=== PATIENT | female | born 1970 | race Caucasian/White ===

== ENCOUNTER 2021-08-08 05:22 | Inpatient (IN) | payer OTHER, SELFPAY ==
[2021-08-08] VITALS (12 sets, daily range): BP systolic 126–169; BP diastolic 53–95; PULSE 94–128; RESP 15–22; TEMP 36.4–37; O2SAT 90–100; BMI 50.8
--- NOTE | ~2021-08-08 | US_ITS ---
EXAMINATION: US paracentesis abd w/image DATE: 08/10/2021 13:34 INDICATION: Ascites. TECHNIQUE: The procedure and its risks and benefits were discussed with the patient. Potential risks discussed included bleeding and infection. The skin was prepped and draped in sterile fashion. 1% lid ocaine was used for local anesthesia. Under ultrasound guidance, a 5 Fr catheter with trochar was adv anced to the periphery of a very small amount of perihepatic ascites in the right upper quadrant. Wit h attempted advancement of the needle and catheter there is tenting of the peritoneum resulting local ized collapse of the fluid pocket at the site of the needle and catheter. Further advancement of the needle would have resulted in penetration of the liver that was therefore elected to terminate the pr ocedure. No other drainable ascites was identified in the left or right upper lower quadrants. The ca theter was removed, and a dressing was applied. There were no immediate complications. FINDINGS: Ultrasound images demonstrate a minimal amount of perihepatic ascites with the needle advanced throug h the fluid near the level of the liver capsule but without penetrating the peritoneum. Incidentally noted are bilateral pleural effusions. IMPRESSION: 1. Unsuccessful attempt at ultrasound-guided paracentesis targeting a very small amount of perihepati c ascites. There was insufficient fluid to allow for catheter placement within the fluid without risk ing advancement into the underlying liver and therefore the planned drainage was deferred. Reviewed, dictated and finalized at location A. IMPRESSION: 1. Unsuccessful attempt at ultrasound-guided paracentesis targeting a very smal l amount of perihepatic ascites. There was insufficient fluid to allow for cath eter placement within the fluid without risking advancement into the underlying liver and therefore the planned drainage was deferred.
--- NOTE | ~2021-08-08 | CT_ITS ---
EXAMINATION: CT abdomen pelvis w con INDICATION: Generalized abdominal pain TECHNIQUE: Computed tomographic images of the abdomen and pelvis were obtained after the administrati on of 100 cc of Omnipaque 350 intravenous contrast. The dose-length product (DLP) was 1608.53 mGy-cm. Automated exposure control and iterative reconstruction technique were employed. COMPARISON: None available FINDINGS: There are moderate size right and small left pleural effusions. The heart size is normal. T here is passive atelectasis in the lower lobes. The gallbladder is surgically absent. The liver surfa ce is nodular. There are multiple upper abdominal collateral vessels. Large periesophageal varices ar e noted. The spleen and adrenal glands are normal. There is a moderate volume of abdominal and pelvic ascites. There appears to be fat stranding surrounding the pancreas. There are multiple small areas of low attenuation within the pancreas. The kidneys are unremarkable. No pathologically enlarged abdo najma or pelvic lymph nodes are identified. There is no free intraperitoneal gas or evidence of bowel obstruction. There is moderate lumbar spondylosis. IMPRESSION: 1. Cirrhosis with portal hypertension and multiple large upper abdominal periesophageal varices. 2. Possible inflammation surrounding the pancreas and multiple small areas of low attenuation in the pancreas, likely related to pancreatitis, acute versus chronic. 3. Moderate volume of ascites. 4. Moderate size right and small left pleural effusions with associated atelectasis. Reviewed, dictated and finalized at location A. IMPRESSION: 1. Cirrhosis with portal hypertension and multiple large upper abdominal peries ophageal varices. 2. Possible inflammation surrounding the pancreas and multiple small areas of l ow attenuation in the pancreas, likely related to pancreatitis, acute versus ch ronic. 3. Moderate volume of ascites. 4. Moderate size right and small left pleural effusions with associated atelect asis.
--- NOTE | 2021-08-08 05:46 | ECG_ITS ---
Measurements Intervals [place] Rate: 100 P: 8 AR: 108 QRS: 10 QRSD: 81 T: 5 QT: 344 QTc: 445 Interpretive Statements SINUS TACHYCARDIA WITH SHORT AR INTERVAL BASELINE ARTIFACT- I, III, AVR, AVL BORDERLINE ECG Electronically Signed On 08-08-2021 8:57:16 CDT by Gary Lima D.O.
[2021-08-08] MEDS: ONDANSETRON INJ 4 MG/2 ML VIAL IV PUSH ×4 (05:51→22:03)
[2021-08-08] MEDS: SODIUM CHLORIDE 0.9% IV 1,000 ML 999 ML IV CONT (05:51)
[2021-08-08] MEDS: PANTOPRAZOLE SODIUM IV 40 MG VIAL 80 MG IV PUSH (05:51)
--- NOTE | 2021-08-08 05:57 | ED.GENADULT ---
HPI - General Adult General Chief complaint: Abdominal Pain <Liborio Fox MD - Last Filed: 08/08/21 06:00> Stated complaint: vomiting blood <Liborio Fox MD - Last Filed: 08/08/21 06:00> Time Seen by Provider: 08/08/21 05:44 <Liborio Fox MD - Last Filed: 08/08/21 06:00> History of Present Illness HPI narrative: Patient is a 51-year-old female who presents to the emergency department with chief complaint of vomiting blood. Patient reports that she has history of liver disease and is noticed that her abdomen is becoming more swollen she is scheduled for a ultrasound and paracentesis later this week. Patient states that about 2 weeks ago she was diagnosed with COVID-19 and has had shortness of breath since then. The patient also reports she has a history of low platelets and this evening started having nausea and vomiting. Patient states that the emesis contained a large amount of blood and this led to her decided to come to the emergency department. The patient denies blood in her stool reports that she is currently not on any blood thinners. The patient reports that she has had an EGD that did not show any evidence of varices in the past. Patient reports this was about a year ago. <Liborio Fox MD - Last Filed: 08/08/21 06:00> Related Data Allergies/adverse reactions: Allergies Allergy/AdvReac Type Severity Reaction Status Date / Time codeine Allergy Mild Nausea and Verified 08/08/21 05:34 Vomiting <Liborio Fox MD - Last Filed: 08/08/21 06:00> Review of Systems Review of Systems: A 10 system review of systems was completed on the patient and is negative except for what is stated in the HPI. Nursing and ancillary documentation was reviewed. <Liborio Fox MD - Last Filed: 08/08/21 06:00> PMFSH Comments History of nonalcoholic cirrhosis COVID-19 <Liborio Fox MD - Last Filed: 08/08/21 06:00> Exam Narrative: GENERAL: Well-appearing, well-nourished, and in no acute distress. HEAD: Normocephalic, atraumatic. EYES: PERRLA and EOMI. ENT: Nares clear, no rhinorrhea or epistaxis. Mucous membranes moist. NECK: Supple. CHEST: Clear to auscultation. No respiratory distress. HEART: Regular rate and rhythm. No murmur heard. Normal peripheral pulses. ABDOMEN: Soft, nontender, nondistended, normal active bowel sounds. EXTREMITIES: Normal range of motion. No edema. SKIN: Warm, dry, no rash. NEURO: No focal deficits. Alert and oriented x3. PSYCH: Normal mood and affect. <Liborio Fox MD - Last Filed: 08/08/21 06:00> Course Course Emergency Course: GI consulted. Recommend octreotide in addition to Protonix. Admit to hospitalist service. Will place in the IMU. Patient did have a bloody bowel movement while in the ER that had formed black stool with red dissipating into the water in the toilet. <Maynor Villavicencio MD - Last Filed: 08/08/21 09:36> Vital Signs Vital signs: Vital Signs Temperature 98.5 F 08/08/21 05:29 Pulse Rate 101 H 08/08/21 05:29 Respiratory Rate 22 H 08/08/21 05:29 Blood Pressure 126/72 08/08/21 05:29 Pulse Oximetry 93 08/08/21 05:29 Temperature 98.5 F 08/08/21 05:29 Pulse Rate 94 08/08/21 07:19 Respiratory Rate 18 08/08/21 07:19 Blood Pressure 159/85 H 08/08/21 07:19 Pulse Oximetry 95 08/08/21 07:19 <Liborio Fox MD - Last Filed: 08/08/21 06:00> Vital Signs Temperature 98.5 F 08/08/21 05:29 Pulse Rate 101 H 08/08/21 05:29 Respiratory Rate 22 H 08/08/21 05:29 Blood Pressure 126/72 08/08/21 05:29 Pulse Oximetry 93 08/08/21 05:29 Temperature 98.5 F 08/08/21 05:29 Pulse Rate 94 08/08/21 07:19 Respiratory Rate 18 08/08/21 07:19 Blood Pressure 159/85 H 08/08/21 07:19 Pulse Oximetry 95 08/08/21 07:19 <Maynor Villavicencio MD - Last Filed: 08/08/21 09:36> Anju Kingsley
[2021-08-08 06:02] LABS: Basophils Absolute Auto 0.1 K/mm3 (0.0-0.1); Basophils Percent Auto 0.5 % (0.2-1.2); Eosinophils Absolute Auto 0.8 K/mm3 (0-0.3); Eosinophils Percent Auto 4.5 % (0-4.4); Hematocrit 35.8 % (37.0-47.0); Hemoglobin 11.6 g/dL (12.0-15.0); Immature Granulocyte Absolute 0.42 K/mm3 (0.00-0.031); Immature Granulocyte Percent A 2.3 % (0-0.5); Lymphocytes Absolute Auto 3.85 K/mm3 (0.9-3.2); Lymphocytes Percent Auto 21.2 % (18.3-44.2); Mean Corpuscular HGB Conc 32.4 g/dl (32-36); Mean Corpuscular Hemoglobin 35.2 pg (26-34); Mean Corpuscular Volume 108.5 fl (80-100); Mean Platelet Volume 9.4 fl (7.4-10.4); Monocytes Absolute Auto 2.2 K/mm3 (0.1-0.6); Monocytes Percent Auto 11.9 % (2.6-8.5); Neutrophils Absolute Auto 10.8 K/mm3 (1.3-6.7); Neutrophils Percent Auto 59.6 % (45.5-73.1); Nucleated Red Blood Cells Absolute Auto 0.1 K/mm3 (0.0-0.012); Nucleated Red Blood Cells Perc 0.3 % (0.0-0.2); Platelet Count Result 206 k/mm3 (150-375); Red Cell Distribution Width 15.2 % (11.5-14.5); White Blood Count 18.2 K/mm3 (4.5-10.0)
[2021-08-08 06:12] LABS: Lipase 1241 U/L (23-300); Magnesium 2.1 mg/dL (1.6-2.3)
[2021-08-08 06:16] LABS: Alanine Aminotransferase 30 U/L (4-35); Albumin Level 2.5 g/dL (3.5-5.1); Alkaline Phosphatase 107 U/L (38-126); Anion Gap 4 mmol/L (8-16); Aspartate Amino Transferase 49 U/L (14-36); Bilirubin,Total 3.5 mg/dL (0.2-1.3); Blood Urea Nitrogen 42 mg/dL (7-17); Calcium 8.2 mg/dL (8.4-10.2); Carbon Dioxide 28 mmol/L (22-30); Chloride 106 mmol/L (98-107); Estimated CRCL calculation 91 ml/min; Estimated Glomerular Filt Rate > 60; Glucose 152 mg/dL (65-110); Potassium 4.9 mmol/L (3.4-5.0); Sodium 138 mmol/L (137-145)
[2021-08-08 06:18] LABS: INR 1.7; Partial Thromboplastin Time 30.1 SECONDS (22.3-36.8)
--- NOTE | 2021-08-08 06:27 | PC.NURSE ---
Addendum entered by Kimberly Chapin RN 08/08/21 06:29: ERP made aware. VORB to discontinue NG. Original Note: RN attempted x3 for NG using two different size tubes w/ no success. pt. reports to RN after procedure hx. of deviated symptoms.
--- NOTE | 2021-08-08 06:43 | PC.NURSE ---
Patient in CT at this time.
[2021-08-08 07:33] LABS: Ammonia < 9 umol/L (9-30)
[2021-08-08] MEDS: OCTREOTIDE ACETATE 50 MCG/ML VIAL IV PUSH (09:14)
--- NOTE | 2021-08-08 10:48 | PC.NURSE ---
Report received by SHAUN Treviño at 1039. All questions answered and plan of care reviewed. patient to go to IMU room 209.
--- NOTE | 2021-08-08 10:59 | ADMGEN ---
This patient, Lilia Francisco, was admitted to IMU Room 209-01 at 1053. Patient/family oriented to hospital policies and general routines including ID bracelet, bed and alarms, visiting hours, pain management, procedures, bathroom and other care routines, personal items, smoking policy, room service/diet, and visiting hours. Information on how to activate the Rapid Response Team has been discussed. Patient/Family are encouraged to report perceived risks to care and to ask questions if they do not understand what they are told or what they should do.
[2021-08-08] MEDS: SODIUM CHLORIDE 0.9% IV 1,000 ML 125 ML IV CONT (11:22)
--- NOTE | 2021-08-08 12:21 | WPDGICN ---
Assessment and Plan Additional Plan GI Consultation Dr. Luna August 08, 2021 This is a 51 year old female patient with a history of cirrhosis with ascites and TCP due to alpha one antitrypsin deficiency, obesity and CCx who now presents for evaluation of hematemesis. Patient is seen at the request of the Hospitalist service to evaluate for same. The patient?s primary care provider is Dr. Madeleine Beltran. She is followed by [facility]. Emil MARCH, present for entire visit at patient request. Patient states she got Covid-19 a couple weeks ago with SOB and body aches. She has been taking ibuprofen 800 mg po q 8 hours for this and just finished Prednisone taper yesterday. She has had some increasing abdominal distention she attributed to ascites and had a U/S with possible tap scheduled for 08/12/2021. This am she had nausea with some dry heaves then had large hematemesis with BRB. She came to the ER for evaluation. In the ER patient had additional hematemesis and melena. Patient has cold intolerance but in general denies previous abdominal pain, nausea or vomiting, trouble swallowing, bloating, loss of appetite or weight, early satiety, heartburn, diarrhea or constipation, rectal bleeding or melena. Patient denies fever, jaundice, scleral icterus, dark urine, light stool, itching, heat intolerance, chest pain, shortness of breath at rest, hematuria, dysuria, new cough or visual changes, easy bruising, tingling of the skin, bone pain or tremors. No history of endocarditis, rheumatic fever, dental prophylaxis, heart valve surgery, bleeding disorder or joint replacement. Allergies: codeine. Medications: propranolol. Lasix, Aldactone, Symbicort (for Covid), Motrin and Prednisone as above. No aspirin or anticoagulants. Social history: nonsmoker, nondrinker. Family history: negative for GI malignancy. 05/29/2020 (Dr. Powell) EGD grade 1 varices, colonoscopy normal. Physical exam: No lower extremity edema, jaundice, spider angioma, palmar erythema. Skull is normocephalic atraumatic. Sclera are non-icteric. Oropharynx is clear. Neck is supple without thyromegaly. Lungs are clear. Heart is rate and rhythm regular. S1 and S2 normal. Normal active bowel sounds. Non-tender, non-rigid, non-distended without hepatosplenomegaly or masses. No guarding. Rectal is deferred. Neuro is conscious and alert ?3. Labs: Hgb 12, Hct 36, PTL 206, WBC 18, MCV 109. INR 1.7, PTT 30, Cr 0.8, NH3< 9. Lipase 1241. TBili 3.5, A/P 107, AST 49, ALT 30. Imaging: CT A/P with IV cirrhosis, portal HTN, periesophageal varices and questionable changes of pancreatitis. Assessment and plan: A. Abnormal LFT's, abnormal imaging-liver secondary to cirrhosis with ascites and TCP, coagulopathy due to alpha one antitrypsin deficiency: - Followed by [facility]; work-up has been done - Has ascites * care with diuretics and beta blockers at this time with bleeding * use 1/4 normal saline for hydration * 2 gr sodium restriction * U/S guided tap prn - Coagulopathy * Typically has low platelets, follow * Has increased INR; would give vit K and maybe FFP * would like INR < 1.6 for EGD B. Acute blood loss anemia with hematemesis and melena on Motrin and Prednisone: - DDx includes varices, ulcer and M-W tear - Follow H+H; transfuse prn - Does not appear to have active bleed at this time - No aspirin, NSAIDS or anticoagulants - EGD in am if possible - Reglan for N/V and to help clear stomach - IV PPI - Octreotide drip C. Macrocytosis: - Denies alcohol - Check B12/folate D. N/V/Hematemesis/abnormal imaging-pancreas/elevated lipase: - It is not clear to me that patient has pancreatitis tho she certainly could - Patient has had CCx - It is possible that CT changes could be from duodenal ulcers and increased Lipase could be from emesis - Would check fasting triglyceride - Follow lipase The procedure of upper endoscopy, its indications, alternatives of barium studies and risks includ
--- NOTE | 2021-08-08 13:10 | PM.IMHP ---
H&P: HPI History of Present Illness Date/Time: 08/08/21 13:10 Patient is a 51-year-old female with past medical history of alpha 1 antitrypsin deficiency cirrhosis with ascites presents to the ED with complaint of hematemesis. Of note patient was diagnosed with COVID-19 2 weeks ago managed outpatient with steroid taper and p.r.n. breathing treatments. She was alternating Tylenol and ibuprofen 800 mg t.i.d. for fever control. She was to complete steroids today. For her cirrhosis she follows Catrachita Magana [employer] [facility] hepatology. She is not quite at transplant. She was planned to have paracentesis 08/12/2021. Of note patient had EGD last year which showed some varices that were not significant enough for intervention. She endorses nausea, melena, hematemesis. She still feels little shortness of breath after COVID 19. She denies fever, chills, chest pain. In the ED: Vitals stable, hemoglobin 11.6, leukocytosis WBC 18.2, INR 1.7, lipase 1241, CT abdomen pelvis shows signs of cirrhosis, varices, pancreatitis. Dr. Luna GI was consulted who will see patient for EGD. Patient admitted to IMU for further management Chief Complaint: Hematemesis, melena Review of Systems Review of Systems: Constitutional: No Fever, No Chills, No Night Sweats, No Fatigue, No Malaise ENT/Mouth: No Hearing Changes, No Ear Pain, No Nasal Congestion, No Sinus Pain, No Hoarseness, No sore throat, No Rhinorrhea, No Swallowing Difficulty Eyes: No Eye Pain, No Redness, No Vision Changes Cardiovascular: No Chest Pain, No Palpitations, No Dyspnea on Exertion, No Orthopnea, No Claudication, No Edema Respiratory: Endorses shortness of breath, no cough, no sputum Gastrointestinal: No Diarrhea, No Constipation. Endorses melena, hematochezia, hematemesis, nausea, vomiting, abdominal Genitourinary: No Dysuria, No Urinary Frequency, No Hematuria, No Urinary Incontinence, No Urgency Musculoskeletal: No Arthralgias, No Myalgias, No Joint Swelling, No Joint Stiffness, No Back Pain Skin: No Skin Lesions, No Pruritis, No Hair Changes Neuro: No Weakness, No Numbness, No Paresthesias, No Loss of Consciousness, No Syncope, No Dizziness, No Headache Psych: No Anxiety/Panic, No Depression, No Insomnia Heme: No Bruising, No Bleeding Lymph: No Adenopathy Endocrine: No Polyuria, No Polydipsia, No Temperature Intolerance [facility], [facility] Past Medical History Medical History (Updated 08/08/21 @ 13:22 by Corbin Lopez DO) [id number] deficiency Cirrhosis of liver COVID-19 07/2021 Surgical History Surgical History (Updated 08/08/21 @ 13:19 by Corbin Lopez DO) History of esophagogastroduodenoscopy (EGD) Family History Family History (Updated 08/08/21 @ 13:19 by Corbin Lopez DO) Father Heart disease Social History Social History Smoking packs per day: 0.5 Smoking cigarettes per day: 10.0 Years smoked: 15 Smoking pack-years: 7.50 Smoking status: Former smoker Tobacco type: cigarettes and e-cigarettes/vaping Second hand tobacco smoke exposure: Yes Alcohol intake: current Substance use: never Substance use type: does not use Other substance usage details: Patient drinks alcohol once to twice a month. Spiritual care concerns: No Comments Drinks socially once a month, quit smoking 6 years ago was half a pack-a-day smoker for 15 years. Occupation works at [employer] Very active lives with and 15-year-old son Meds Home Medications and Allergies Home Medications Medication Instructions Recorded Confirmed Type albuterol sulfate 2 puff INHALATION Q4H 08/08/21 08/08/21 History budesonide-formoterol 2 puff INHALATION BID 08/08/21 08/08/21 History diclofenac sodium 75 mg PO BID PRN 08/08/21 08/08/21 History furosemide 40 mg PO DAILY 08/08/21 08/08/21 History prednisone 20 mg PO USEASDIRECTD 08/08/21 08/08/21 History propranolol 40 mg PO DAILY
[2021-08-08 14:39] LABS: Hematocrit 31.4 % (37.0-47.0); Hemoglobin 10.3 g/dL (12.0-15.0)
[2021-08-08] MEDS: DEXTROSE 5%/0.225% SOD CHL 1,000 ML 100 ML IV CONT (16:06)
[2021-08-08] MEDS: METOCLOPRAMIDE HCL INJ 10 MG/2 ML VIAL IV PUSH (17:41)
[2021-08-08] MEDS: FLUTICASONE/SALMETEROL 115-21 MCG INHALER 1 PUFF 2 PUFF INHALATION (20:02)
[2021-08-08 22:23] LABS: Hematocrit 29.7 % (37.0-47.0); Hemoglobin 9.7 g/dL (12.0-15.0)
[2021-08-08] MEDS: PANTOPRAZOLE SODIUM IV 40 MG VIAL IV PUSH (22:40)
[2021-08-09] VITALS (17 sets, daily range): BP systolic 130–154; BP diastolic 45–70; PULSE 70–108; RESP 14–23; TEMP 36.4–37.1; O2SAT 94–98
[2021-08-09] MEDS: METOCLOPRAMIDE HCL INJ 10 MG/2 ML VIAL IV PUSH ×5 (00:22→23:38)
[2021-08-09] MEDS: DEXTROSE 5%/0.225% SOD CHL 1,000 ML 100 ML IV CONT ×3 (01:23→23:41)
[2021-08-09 05:40] LABS: Basophils Absolute Auto 0.1 K/mm3 (0.0-0.1); Basophils Percent Auto 0.4 % (0.2-1.2); Eosinophils Absolute Auto 0.8 K/mm3 (0-0.3); Eosinophils Percent Auto 4.7 % (0-4.4); Hemoglobin 9.1 g/dL (12.0-15.0); Immature Granulocyte Absolute 0.45 K/mm3 (0.00-0.031); Immature Granulocyte Percent A 2.8 % (0-0.5); Lymphocytes Absolute Auto 2.81 K/mm3 (0.9-3.2); Lymphocytes Percent Auto 17.3 % (18.3-44.2); Mean Corpuscular HGB Conc 32.5 g/dl (32-36); Mean Corpuscular Hemoglobin 35.3 pg (26-34); Mean Corpuscular Volume 108.5 fl (80-100); Mean Platelet Volume 9.2 fl (7.4-10.4); Monocytes Absolute Auto 1.8 K/mm3 (0.1-0.6); Neutrophils Absolute Auto 10.4 K/mm3 (1.3-6.7); Neutrophils Percent Auto 63.8 % (45.5-73.1); Nucleated Red Blood Cells Perc 0.2 % (0.0-0.2); Platelet Count Result 166 k/mm3 (150-375); Red Blood Count 2.58 M/mm3 (4.2-5.4); Red Cell Distribution Width 15.3 % (11.5-14.5); White Blood Count 16.3 K/mm3 (4.5-10.0)
[2021-08-09 05:50] LABS: INR 1.7; Partial Thromboplastin Time 34.6 SECONDS (22.3-36.8); Prothrombin Time 19.1 Seconds (11.1-14.7)
[2021-08-09 05:56] LABS: Anion Gap 0 mmol/L (8-16); Blood Urea Nitrogen 39 mg/dL (7-17); Calcium 7.7 mg/dL (8.4-10.2); Carbon Dioxide 27 mmol/L (22-30); Chloride 107 mmol/L (98-107); Estimated CRCL calculation 92 ml/min; Estimated Glomerular Filt Rate > 60; Glucose 171 mg/dL (65-110); Potassium 4.9 mmol/L (3.4-5.0); Sodium 134 mmol/L (137-145); Triglycerides 67 mg/dL (<150)
[2021-08-09 06:03] LABS: Lipase 2027 U/L (23-300)
[2021-08-09] MEDS: ONDANSETRON INJ 4 MG/2 ML VIAL IV PUSH (06:05)
[2021-08-09 07:02] LABS: Folic Acid 7.3 ng/mL (2.76->20); Vitamin B12 > 1000.0 pg/mL (239-931)
[2021-08-09] MEDS: PANTOPRAZOLE SODIUM IV 40 MG VIAL IV PUSH ×2 (08:00→20:49)
[2021-08-09] MEDS: FLUTICASONE/SALMETEROL 115-21 MCG INHALER 1 PUFF 2 PUFF INHALATION ×2 (08:54→20:30)
[2021-08-09] MEDS: LACTATED RINGERS 1,000 ML 150 ML IV CONT (10:54)
--- NOTE | 2021-08-09 10:56 | WPDANESEPPF ---
Anes - Initial Pre Proc Eval Procedure: Operation Date: 08/09/21 14:15 Proposed Procedures p Esophagogastroduodenoscopy - Rbuen Ward MD Date/Time: 08/09/21 10:56 Surgeon: Jerry Lopez DO Pre Op Diagnosis: Upper GI Bleeding, Pancreatitis Patient Data Age: 51 Gender: F Height: 1.65 m Weight: 138.4 kg Last Vital Signs Temp 97.7 F 08/09/21 10:51 Pulse 102 H 08/09/21 10:51 Resp 20 08/09/21 10:51 BP 144/45 H 08/09/21 10:51 Pulse Ox 97 08/09/21 10:51 Allergies Allergy/AdvReac Type Severity Reaction Status Date / Time codeine Allergy Mild Nausea and Verified 08/09/21 10:44 Vomiting amoxicillin AdvReac Nausea and Verified 08/09/21 10:44 Vomiting Home Medications Medication Instructions Recorded Confirmed Type albuterol sulfate 2 puff INHALATION Q4H PRN 08/08/21 08/08/21 History budesonide-formoterol 2 puff INHALATION BID 08/08/21 08/08/21 History diclofenac sodium 75 mg PO BID PRN 08/08/21 08/08/21 History furosemide 40 mg PO DAILY 08/08/21 08/08/21 History prednisone 20 mg PO USEASDIRECTD 08/08/21 08/08/21 History propranolol 40 mg PO DAILY 08/08/21 08/08/21 History spironolactone 100 mg PO DAILY 08/08/21 08/08/21 History Laboratory Tests 08/08/21 08/08/21 08/09/21 14:21 22:13 05:23 WBC 16.3 K/mm3 H K/mm3 (4.5-10.0) RBC 2.58 M/mm3 L M/mm3 (4.2-5.4) Hgb 10.3 g/dL L g/dL 9.7 g/dL L g/dL 9.1 g/dL L g/dL (12.0-15.0) (12.0-15.0) (12.0-15.0) Hct 31.4 % L % 29.7 % L % 28.0 % L % (37.0-47.0) (37.0-47.0) (37.0-47.0) MCV 108.5 fl H fl (80-100) MCH 35.3 pg H pg (26-34) MCHC 32.5 g/dl g/dl (32-36) RDW 15.3 % H % (11.5-14.5) Plt Count 166 k/mm3 k/mm3 (150-375) MPV 9.2 fl fl (7.4-10.4) Immature Gran % (Auto) 2.8 % H % (0-0.5) Neut % (Auto) 63.8 % % (45.5-73.1) Lymph % (Auto) 17.3 % L % (18.3-44.2) [place] % (Auto) 11.0 % H % (2.6-8.5) Eos % (Auto) 4.7 % H % (0-4.4) Baso % (Auto) 0.4 % % (0.2-1.2) Lymph # (Auto) 2.81 K/mm3 K/mm3 (0.9-3.2) [place] # (Auto) 1.8 K/mm3 H K/mm3 (0.1-0.6) Eos # (Auto) 0.8 K/mm3 H K/mm3 (0-0.3) Baso # (Auto) 0.1 K/mm3 K/mm3 (0.0-0.1) Abs Immat Gran (auto) 0.45 K/mm3 H K/mm3 (0.00-0.031) Absolute Neuts (auto) 10.4 K/mm3 H K/mm3 (1.3-6.7) Absolute Nucleated RBC 0.0 K/mm3 K/mm3 (0.0-0.012) Nucleated RBC % 0.2 % % (0.0-0.2) PT INR APTT Sodium Potassium Chloride Carbon Dioxide Anion Gap BUN Creatinine Estim Creat Clear Calc Estimated GFR Glucose Calcium Triglycerides Lipase Vitamin B12 Folate 08/09/21 08/09/21 05:23 05:23 WBC RBC Hgb Hct MCV MCH MCHC RDW Plt Count MPV Immature Gran % (Auto) Neut % (Auto) Lymph % (Auto) [place] % (Auto) Eos % (Auto) Baso % (Auto) Lymph # (Auto) [place] # (Auto) Eos # (Auto) Baso # (Auto) Abs Immat Gran (auto) Absolute Neuts (auto) Absolute Nucleated RBC Nucleated RBC % PT 19.1 Seconds H Seconds (11.1-14.7) INR 1.7 APTT 34.6 SECONDS SECONDS (22.3-36.8) Sodium 134 mmol/L L mmol/L (137-145) Potassium 4.9 mmol/L mmol/L (3.4-5.0) Chloride 107 mmol/L mmol/L (98-107) Carbon Dioxide 27 mmol/L mmol/L (22-30) Anion Gap 0 mmol/L L mmol/L (8-16) BUN 39 mg/dL H mg/dL (7-17) Creatinine 0.90 mg/dL mg/dL (0.7-1.0) E
--- NOTE | 2021-08-09 11:11 | PM.IMPN ---
Progress Note: A&P Assessment and Plan (1) Acute upper GI bleed: Code(s): K92.2 - Gastrointestinal hemorrhage, unspecified Status: Acute Assessment and Plan: Associated with acute blood loss anemia Most likely related to steroid and NSAID complicated by esophageal varices secondary to liver cirrhosis Patient has history of liver cirrhosis and esophageal varices GI consult EGD 08/09/2021 IV Protonix IV octreotide drip Pain control Zofran IV Rocephin started as patient has ascites and GI bleed Monitor H&H transfuse if hemoglobin below 7 (2) Acute pancreatitis: Code(s): K85.90 - Acute pancreatitis without necrosis or infection, unspecified Status: Acute Assessment and Plan: Reviewed CT scan shows acute pancreatitis patient has elevated lipase Continue IV hydration Diet managed by GI IV and oral pain control Zofran for nausea (3) [id number] deficiency: Code(s): E88.01 - Wewfh-[id number] deficiency Status: Inactive Assessment and Plan: Associated with liver cirrhosis GI follow-up (4) COVID-19: Code(s): U07.1 - COVID-19 Status: Acute Assessment and Plan: -leukocytosis likely from steroid taper, COVID-19 appears to be resolved, she completed steroid taper. She was diagnosed with COVID-19 2 weeks prior to admission -will continue p.r.n. breathing treatments Symbicort and albuterol Additional Plan Diet: NPO except ice chips DVT prophylaxis: SCDs, with GI bleed no chemoprophylaxis Code status: Full code Disposition: EGD today, continue monitoring in IMU Subjective Date/time seen: 08/09/21 11:11 Interval history: 51-year-old female with past medical history of alpha 1 antitrypsin deficiency cirrhosis with ascites presents to the ED with complaint of hematemesis. Of note patient was diagnosed with COVID-19 2 weeks ago managed outpatient with steroid taper and p.r.n. breathing treatments. She was alternating Tylenol and ibuprofen 800 mg t.i.d. for fever control. She was to complete steroids today. For her cirrhosis she follows Catrachita Magana [employer] at [facility] hepatology. She is not quite at transplant. She was planned to have paracentesis 08/12/2021. Of note patient had EGD last year which showed some varices that were not significant enough for intervention. She endorses nausea, melena, hematemesis. She still feels little shortness of breath after COVID 19. CT scan shows liver cirrhosis esophageal viruses and acute pancreatitis GI was consulted EGD on 08/09/2021 patient was started on Protonix drip and octreotide drip pending final results of EGD Patient still feel weak short of breath Patient denies fever headache chest pain fever I am seeing the patient for GI bleed Objective Data Vital Signs Vital Signs: Vital Signs - 24 hr 08/08/21 12:00 08/08/21 14:00 08/08/21 16:00 Temperature 98.6 F Pulse Rate 106 H 121 H 127 H Respiratory Rate 16 Blood Pressure 132/53 L Pulse Oximetry 97 08/08/21 18:00 08/08/21 20:00 08/08/21 22:00 Temperature 98.5 F Pulse Rate 128 H 103 H 105 H Respiratory Rate 18 Blood Pressure 169/65 H Pulse Oximetry 95 08/08/21 23:34 08/09/21 00:00 08/09/21 02:00 Temperature 98.0 F Pulse Rate 103 H 98 94 Respiratory Rate 18 Blood Pressure 160/70 H Pulse Oximetry 94 94 08/09/21 04:00 08/09/21 06:00 08/09/21 08:00 Temperature 97.6 F 98.3 F Pulse Rate 102 H 99 98 Respiratory Rate 20 17 Blood Pressure 154/66 H 138/58 L Pulse Oximetry 98 95 08/09/21 08:56 08/09/21 10:51 Temperature 97.7 F Pulse Rate 102 H Respiratory Rate 20 Blood Pressure 144/45 H Pulse Oximetry 95 97 Intake/Output Intake/Output: Intake & Output 08/06/21 08/07/21 08/08/21 08/09/21 23:59 23:59 23:59 23:59 Intake Total 2276 1200 Output Total 450 Balance 2276 750 Meds/Results Medications: Active Medications Generic Name Dose Route Start Last Admin Trade
[2021-08-09 12:25] LABS: Glucose Point of Care 145 mg/dl (65-105)
[2021-08-09 12:37] LABS: Hemoglobin A1C 5.3 % (<5.7)
[2021-08-09] MEDS: PHYTONADIONE 5 MG TABLET PO (12:39)
[2021-08-09 14:46] LABS: Hematocrit 27.1 % (37.0-47.0)
[2021-08-09 16:41] LABS: Glucose Point of Care 149 mg/dl (65-105)
[2021-08-09 20:30] LABS: Glucose Point of Care 148 mg/dl (65-105)
[2021-08-10] VITALS (13 sets, daily range): BP systolic 138–160; BP diastolic 46–63; PULSE 80–114; RESP 16–22; TEMP 36.5–37.1; O2SAT 93–95
[2021-08-10] MEDS: METOCLOPRAMIDE HCL INJ 10 MG/2 ML VIAL IV PUSH ×4 (05:29→23:19)
[2021-08-10 06:23] LABS: Basophils Absolute Auto 0.1 K/mm3 (0.0-0.1); Basophils Percent Auto 0.7 % (0.2-1.2); Eosinophils Absolute Auto 0.6 K/mm3 (0-0.3); Eosinophils Percent Auto 5.3 % (0-4.4); Hematocrit 25.1 % (37.0-47.0); Hemoglobin 8.2 g/dL (12.0-15.0); Immature Granulocyte Absolute 0.63 K/mm3 (0.00-0.031); Immature Granulocyte Percent A 5.4 % (0-0.5); Lymphocytes Percent Auto 19.8 % (18.3-44.2); Mean Corpuscular HGB Conc 32.7 g/dl (32-36); Mean Corpuscular Hemoglobin 35.5 pg (26-34); Mean Corpuscular Volume 108.7 fl (80-100); Mean Platelet Volume 9.3 fl (7.4-10.4); Monocytes Absolute Auto 1.6 K/mm3 (0.1-0.6); Monocytes Percent Auto 13.9 % (2.6-8.5); Neutrophils Absolute Auto 6.4 K/mm3 (1.3-6.7); Neutrophils Percent Auto 54.9 % (45.5-73.1); Nucleated Red Blood Cells Absolute Auto 0.1 K/mm3 (0.0-0.012); Nucleated Red Blood Cells Perc 0.9 % (0.0-0.2); Platelet Count Result 132 k/mm3 (150-375); Red Blood Count 2.31 M/mm3 (4.2-5.4); Red Cell Distribution Width 15.8 % (11.5-14.5); White Blood Count 11.6 K/mm3 (4.5-10.0)
[2021-08-10 06:37] LABS: Alanine Aminotransferase 31 U/L (6-35); Albumin Level 2.3 g/dL (3.5-5.1); Alkaline Phosphatase 92 U/L (38-126); Anion Gap 1 mmol/L (8-16); Aspartate Amino Transferase 49 U/L (14-36); Bilirubin,Total 2.9 mg/dL (0.2-1.3); Blood Urea Nitrogen 24 mg/dL (7-17); Calcium 7.6 mg/dL (8.4-10.2); Carbon Dioxide 26 mmol/L (22-30); Chloride 105 mmol/L (98-107); Estimated CRCL calculation 92 ml/min; Estimated Glomerular Filt Rate > 60; Glucose 143 mg/dL (65-110); Potassium 4.3 mmol/L (3.4-5.0); Sodium 132 mmol/L (137-145)
--- NOTE | 2021-08-10 07:58 | WPDANESPN ---
Anes - Prog Note Post-Op Date/Time: 08/10/21 07:58 Cardiovascular status: normal Respiratory status: normal Airway patency: baseline Mental status: baseline Post-Op hydration status: normal Vital Signs: Last Vital Signs Temp 36.5 C 08/10/21 03:46 Pulse 80 08/10/21 06:00 Resp 22 H 08/10/21 03:46 BP 160/46 H 08/10/21 03:46 Pulse Ox 95 08/10/21 03:46 Pain Score (VAS): 0 I/O: Intake & Output 08/09/21 08/09/21 08/10/21 15:59 23:59 07:59 Intake Total 1370 1440 250 Balance 1370 1440 250 Laboratory Tests 08/10/21 05:27 08/10/21 05:27 08/08/21 08/09/21 08/09/21 14:21 12:22 14:16 WBC RBC Hgb 9.0 L Hct 27.1 L MCV MCH MCHC RDW Plt Count MPV Immature Gran % (Auto) Neut % (Auto) Lymph % (Auto) [place] % (Auto) Eos % (Auto) Baso % (Auto) Lymph # (Auto) [place] # (Auto) Eos # (Auto) Baso # (Auto) Abs Immat Gran (auto) Absolute Neuts (auto) Absolute Nucleated RBC Nucleated RBC % Sodium Potassium Chloride Carbon Dioxide Anion Gap BUN Creatinine Estim Creat Clear Calc Estimated GFR Glucose POC Capillary Glucose 145 H Hemoglobin A1c 5.3 Calcium Total Bilirubin AST ALT Alkaline Phosphatase Total Protein Albumin 08/09/21 08/09/21 08/10/21 16:31 20:19 05:27 WBC 11.6 H RBC 2.31 L Hgb 8.2 L Hct 25.1 L MCV 108.7 H MCH 35.5 H MCHC 32.7 RDW 15.8 H Plt Count 132 L MPV 9.3 Immature Gran % (Auto) 5.4 H Neut % (Auto) 54.9 Lymph % (Auto) 19.8 [place] % (Auto) 13.9 H Eos % (Auto) 5.3 H Baso % (Auto) 0.7 Lymph # (Auto) 2.30 [place] # (Auto) 1.6 H Eos # (Auto) 0.6 H Baso # (Auto) 0.1 Abs Immat Gran (auto) 0.63 H Absolute Neuts (auto) 6.4 Absolute Nucleated RBC 0.1 H Nucleated RBC % 0.9 H Sodium Potassium Chloride Carbon Dioxide Anion Gap BUN Creatinine Estim Creat Clear Calc Estimated GFR Glucose POC Capillary Glucose 149 H 148 H Hemoglobin A1c Calcium Total Bilirubin AST ALT Alkaline Phosphatase Total Protein Albumin 08/10/21 05:27 WBC RBC Hgb Hct MCV MCH MCHC RDW Plt Count MPV Immature Gran % (Auto) Neut % (Auto) Lymph % (Auto) [place] % (Auto) Eos % (Auto) Baso % (Auto) Lymph # (Auto) [place] # (Auto) Eos # (Auto) Baso # (Auto) Abs Immat Gran (auto) Absolute Neuts (auto) Absolute Nucleated RBC Nucleated RBC % Sodium 132 L Potassium 4.3 Chloride 105 Carbon Dioxide 26 Anion Gap 1 L BUN 24 H D Creatinine 0.90 Estim Creat Clear Calc 92 Estimated GFR > 60 Glucose 143 H POC Capillary Glucose Hemoglobin A1c Calcium 7.6 L Total Bilirubin 2.9 H AST 49 H ALT 31 Alkaline Phosphatase 92 Total Protein 5.0 L Albumin 2.3 L Post-procedural complaints: none Patient Feedback: Patient satisfied with anesthetic care.
[2021-08-10 08:02] LABS: Glucose Point of Care 144 mg/dl (65-105)
[2021-08-10] MEDS: FLUTICASONE/SALMETEROL 115-21 MCG INHALER 1 PUFF 2 PUFF INHALATION ×2 (08:28→20:58)
[2021-08-10] MEDS: PANTOPRAZOLE SODIUM IV 40 MG VIAL IV PUSH ×2 (08:56→21:07)
--- NOTE | 2021-08-10 11:35 | WPDGIPROGNO ---
Progress Note: A&P Assessment and Plan (1) Acute upper GI bleed: Code(s): K92.2 - Gastrointestinal hemorrhage, unspecified Status: Acute Assessment and Plan: egd yesterday showed erosive esophagitis and small non-bleeding duodenal ulcers, also PHG, small esophageal varices without stigmata of bleeding probably nsaid's induced continue with ppi (2) Upper abdominal pain: Code(s): R10.10 - Upper abdominal pain, unspecified Status: Acute Assessment and Plan: probably from pancreatitis and egd findings- doing better but will also get diagnostic paracentesis (she is on abx as prophylaxis)- she was scheduled to get a paracentesis as outpatient anyways (3) Duodenal ulcer: Code(s): K26.9 - Duodenal ulcer, unspecified as acute or chronic, without hemorrhage or perforation Status: Acute Assessment and Plan: on ppi, no more bleeding (4) Cirrhosis of liver: Code(s): K74.60 - Unspecified cirrhosis of liver Status: Inactive Assessment and Plan: AA1t, she is seeing winding machine operator in [facility] (5) Ascites: Code(s): R18.8 - Other ascites Status: Acute Assessment and Plan: will get paracentesis with studies (6) Acute blood loss anemia: Code(s): D62 - Acute posthemorrhagic anemia Status: Acute (7) NSAID long-term use: Code(s): Z79.1 - assistant terminal manager (current) use of non-steroidal anti-inflammatories (NSAID) Status: Acute (8) Acute pancreatitis: Code(s): K85.90 - Acute pancreatitis without necrosis or infection, unspecified Status: Acute Assessment and Plan: medical treatment Subjective Date/time seen: 08/10/21 11:35 Interval history: she is feeling better, no more signs of bleeding, abdominal pain better but still not gone. Review of Systems Review of Systems: All systems reviewed & are unremarkable except as noted in HPI and below Exam Const: General: comfortable and no acute distress HENMT: General nose exam: Normal nares present Eyes: General: appearance normal, both eyes and all related structures Neck: Neck: no JVD Resp: Auscultation: clear to auscultation bilaterally Cardio: Rate: regular rate Rhythm: regular rhythm GI: Inspection: non-distended GI Palp: Yes Soft to palpation and Yes Tenderness to palpation present (GI) (less tender, better) Percussion: Yes Fluid wave present Auscultation: normal bowel sounds Skin: General skin exam: normal color Neuro: Speech: normal speech Extrem: General: normal to inspection Psych: Mental Status: mental status grossly normal Objective Data Vital Signs Vital Signs: Vital Signs - 24 hr 08/09/21 12:00 08/09/21 14:00 08/09/21 16:00 Temperature 98.2 F 98.7 F Pulse Rate 91 97 86 Respiratory Rate 18 17 Blood Pressure 148/59 H 146/63 H Pulse Oximetry 94 96 08/09/21 18:00 08/09/21 20:00 08/09/21 22:00 Temperature 97.9 F Pulse Rate 108 H 70 95 Respiratory Rate 20 Blood Pressure 137/54 L Pulse Oximetry 97 08/10/21 00:00 08/10/21 02:00 08/10/21 03:46 Temperature 97.7 F Pulse Rate 85 83 114 H Respiratory Rate 22 H Blood Pressure 160/46 H Pulse Oximetry 95 08/10/21 04:00 08/10/21 06:00 08/10/21 08:00 Temperature 98.5 F Pulse Rate 90 80 95 Respiratory Rate 16 Blood Pressure 139/50 L Pulse Oximetry 93 08/10/21 10:00 Temperature Pulse Rate 88 Respiratory Rate Blood Pressure Pulse Oximetry Intake/Output Intake/Output: Intake & Output 08/07/21 08/08/21 08/09/21 08/10/21 23:59 23:59 23:59 23:59 Intake Total 2276 3910 690 Output Total 450 Balance 2276 3460 690 Meds/Results Medications: Active Medications Generic Name Dose Route Start Last Admin Trade Name Freq PRN Reason Stop Dose Admin Albuterol 2 puff 08/08/21 18:20 Albuterol Sulfate (*Sp) Aerosol 1 Puff INHALATION Q4H PRN SHORTNESS OF BREATH Dextrose 12.5 gm 08/09/21 11:21 Dextros
[2021-08-10 12:33] LABS: Glucose Point of Care 136 mg/dl (65-105)
[2021-08-10 15:08] LABS: Hematocrit 26.1 % (37.0-47.0); Hemoglobin 8.5 g/dL (12.0-15.0)
[2021-08-10 16:27] LABS: Glucose Point of Care 150 mg/dl (65-105)
--- NOTE | 2021-08-10 18:36 | PM.IMPN ---
Progress Note: A&P Assessment and Plan (1) Acute upper GI bleed: Code(s): K92.2 - Gastrointestinal hemorrhage, unspecified Status: Acute Assessment and Plan: Associated with acute blood loss anemia Most likely related to steroid and NSAID complicated by esophageal varices secondary to liver cirrhosis Patient has history of liver cirrhosis and esophageal varices GI consult EGD 08/09/2021 IV Protonix IV octreotide drip Pain control Zofran IV Rocephin started as patient has ascites and GI bleed Monitor H&H transfuse if hemoglobin below 7 08/10/2021 interval history: patient had a EGD on 08/09 and showed erosive esophagitis and a small nonbleeding duodenal ulcer as well small esophageal varix, GI suspect secondary to NSAID is asked to avoid, patient with abdominal GI suspect from ascites patient is scheduled to paracentesis will follow-up, meds clinically stable will continue to monitor may discharge tomorrow. 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 She was diagnosed with COVID-19 2 weeks prior to admission -will continue p.r.n. breathing treatments Symbicort and albuterol Additional Plan Diet: NPO except ice chips DVT prophylaxis: SCDs, with GI bleed no chemoprophylaxis Code status: Full code Disposition: EGD today, continue monitoring in IMU Subjective Date/time seen: 08/10/21 18:36 Patient is a 51-year-old female with past medical history of alpha 1 antitrypsin deficiency cirrhosis with ascites presents to the ED with complaint of hematemesis. Of note patient was diagnosed with COVID-19 2 weeks ago managed outpatient with steroid taper and p.r.n. breathing treatments. She was alternating Tylenol and ibuprofen 800 mg t.i.d. for fever control. She was to complete steroids today. For her cirrhosis she follows Catrachita Magana ADVERTISING STRATEGIST at [facility] hepatology. She is not quite at transplant. She was planned to have paracentesis 08/12/2021. Of note patient had EGD last year which showed some varices that were not significant enough for intervention. She endorses nausea, melena, hematemesis. She still feels little shortness of breath after COVID 19. She denies fever, chills, chest pain. In the ED: Vitals stable, hemoglobin 11.6, leukocytosis WBC 18.2, INR 1.7, lipase 1241, CT abdomen pelvis shows signs of cirrhosis, varices, pancreatitis. Dr. Cheryl MEANS was consulted who will see patient for EGD. Patient admitted to IMU for further management Chief Complaint: Hematemesis, melena 08/10/2021 interval history: patient had a EGD on 08/09 and showed erosive esophagitis and a small nonbleeding duodenal ulcer as well small esophageal varix, GI suspect secondary to NSAID is asked to avoid, patient with abdominal GI suspect from ascites patient is scheduled to paracentesis will follow-up, meds clinically stable will continue to monitor may discharge tomorrow. Review of Systems Review of Systems: All systems reviewed & are unremarkable except as noted in HPI and below Exam Narrative: morbidly obese Patient is comfortable, NAD HEENT: eyes are clear and none icteric LUNGS: normal respiratory effort HEART: RR S1S2 ABD: distended Lower extremities: no edema SKIN: nonjaundiced Neuro: grossly intact. Objective Data Vital Signs Vital Signs: Vital
[2021-08-10 20:25] LABS: Glucose Point of Care 112 mg/dl (65-105)
[2021-08-11] VITALS: PULSE 92
[2021-08-11 02:00] VITALS: PULSE 94
[2021-08-11 04:00] VITALS: PULSE 83
[2021-08-11 05:17] LABS: Hematocrit 25.7 % (37.0-47.0); Hemoglobin 8.3 g/dL (12.0-15.0); Mean Corpuscular HGB Conc 32.3 g/dl (32-36); Mean Corpuscular Hemoglobin 35.3 pg (26-34); Mean Corpuscular Volume 109.4 fl (80-100); Mean Platelet Volume 9.7 fl (7.4-10.4); Platelet Count Result 113 k/mm3 (150-375); Red Blood Count 2.35 M/mm3 (4.2-5.4); Red Cell Distribution Width 16.4 % (11.5-14.5); White Blood Count 9.1 K/mm3 (4.5-10.0)
[2021-08-11] MEDS: METOCLOPRAMIDE HCL INJ 10 MG/2 ML VIAL IV PUSH ×2 (05:25→11:11)
[2021-08-11 05:28] LABS: Alanine Aminotransferase 37 U/L (6-35); Albumin Level 2.4 g/dL (3.5-5.1); Alkaline Phosphatase 107 U/L (38-126); Anion Gap 2 mmol/L (8-16); Aspartate Amino Transferase 63 U/L (14-36); Bilirubin,Total 3.3 mg/dL (0.2-1.3); Blood Urea Nitrogen 17 mg/dL (7-17); Calcium 7.8 mg/dL (8.4-10.2); Carbon Dioxide 27 mmol/L (22-30); Chloride 106 mmol/L (98-107); Estimated CRCL calculation 102 ml/min; Estimated Glomerular Filt Rate > 60; Glucose 114 mg/dL (65-110); Lipase 1673 U/L (23-300); Magnesium 2.1 mg/dL (1.6-2.3); Potassium 4.2 mmol/L (3.4-5.0); Sodium 135 mmol/L (137-145)
[2021-08-11 06:01] VITALS: PULSE 82
[2021-08-11 08:00] VITALS: BP 153/52; PULSE 90; PULSE 91; RESP 18; TEMP 36.2; O2SAT 95
[2021-08-11 08:19] LABS: Glucose Point of Care 114 mg/dl (65-105)
[2021-08-11] MEDS: FLUTICASONE/SALMETEROL 115-21 MCG INHALER 1 PUFF 2 PUFF INHALATION (08:29)
[2021-08-11] MEDS: PANTOPRAZOLE SODIUM IV 40 MG VIAL IV PUSH (08:32)
[2021-08-11] MEDS: NEOMYCIN/POLYMYXIN/BACITRACIN OINTMENT 15 GM TUBE 1 APPLIC TOPICAL (11:11)
[2021-08-11 11:59] LABS: Glucose Point of Care 150 mg/dl (65-105)
[2021-08-11 12:00] VITALS: BP 153/68; PULSE 104; PULSE 98; RESP 18; TEMP 36.4; O2SAT 95
[2021-08-11 13:06] LABS: Hematocrit 27.6 % (37.0-47.0); Hemoglobin 8.9 g/dL (12.0-15.0)
--- NOTE | 2021-08-11 14:29 | WPDGIPROGNO ---
Progress Note: A&P Assessment and Plan (1) Acute upper GI bleed: Code(s): K92.2 - Gastrointestinal hemorrhage, unspecified Status: Acute Assessment and Plan: egd showed erosive esophagitis and small non-bleeding duodenal ulcers, also PHG, small esophageal varices without stigmata of bleeding probably nsaid's induced continue with ppi- hb stable since admission (2) Upper abdominal pain: Code(s): R10.10 - Upper abdominal pain, unspecified Status: Acute Assessment and Plan: probably from pancreatitis and egd findings no enough ascites to get paracentesis this is improving and she is doing better she can go home from GI standpoint- she will be on liquid diet and advance to low fat as tolerated given diagnosis of pancreatitis (also eat small portions) (3) Duodenal ulcer: Code(s): K26.9 - Duodenal ulcer, unspecified as acute or chronic, without hemorrhage or perforation Status: Acute Assessment and Plan: will prescribe ppi, no more bleeding (4) Cirrhosis of liver: Code(s): K74.60 - Unspecified cirrhosis of liver Status: Inactive Assessment and Plan: AA1t, she is seeing chief ophthalmic technician in [facility] and will follow-up soon (5) Ascites: Code(s): R18.8 - Other ascites Status: Acute Assessment and Plan: only minimal ascites this time (6) Acute blood loss anemia: Code(s): D62 - Acute posthemorrhagic anemia Status: Acute Assessment and Plan: stable (7) NSAID long-term use: Code(s): Z79.1 - detention (current) use of non-steroidal anti-inflammatories (NSAID) Status: Acute Assessment and Plan: advised to discontinue altogether (8) Acute pancreatitis: Code(s): K85.90 - Acute pancreatitis without necrosis or infection, unspecified Status: Acute Assessment and Plan: medical treatment Subjective Date/time seen: 08/11/21 14:29 Interval history: ultrasound today revealed only minimal ascites not enough to do paracentesis. Overall she is doing much better with only minimal abdominal pain and no more signs of bleeding. Review of Systems Review of Systems: All systems reviewed & are unremarkable except as noted in HPI and below Exam Const: General: comfortable and no acute distress HENMT: General nose exam: Normal nares present Eyes: General: appearance normal, both eyes and all related structures Neck: Neck: no JVD Resp: Auscultation: clear to auscultation bilaterally Cardio: Rate: regular rate Rhythm: regular rhythm GI: Inspection: non-distended GI Palp: Yes Soft to palpation and No Guarding due to palpation present (GI) Auscultation: normal bowel sounds Skin: General skin exam: normal color Neuro: Speech: normal speech Extrem: General: normal to inspection Psych: Mental Status: mental status grossly normal Objective Data Vital Signs Vital Signs: Vital Signs - 24 hr 08/10/21 16:00 08/10/21 16:41 08/10/21 19:16 Temperature 98.7 F 98.6 F Pulse Rate 92 90 96 Respiratory Rate 16 16 Blood Pressure 138/51 L 151/63 H Pulse Oximetry 95 94 08/10/21 20:00 08/10/21 22:00 08/11/21 00:00 Temperature Pulse Rate 88 88 92 Respiratory Rate 16 Blood Pressure Pulse Oximetry 94 08/11/21 02:00 08/11/21 04:00 08/11/21 06:01 Temperature Pulse Rate 94 83 82 Respiratory Rate Blood Pressure Pulse Oximetry 08/11/21 08:00 08/11/21 12:00 Temperature 97.1 F L 97.6 F Pulse Rate 91 98 Respiratory Rate 18 18 Blood Pressure 153/52 H 153/68 H Pulse Oximetry 95 95 Intake/Output Intake/Output: Intake & Output 08/08/21 08/09/21 08/10/21 08/11/21 23:59 23:59 23:59 23:59 Intake Total 2276 4010 2260 590 Output Total 450 700 Balance 2276 3560 2260 -110 Meds/Results Medications: Active Medications Generic Name Dose Route Start Last Admin Trade Name Freq PRN Reason Stop Dose Admin Albuterol 2 puff 08/08/21 18:20 [place]
--- NOTE | 2021-08-11 14:59 | PM.DS ---
DS: Admitting Diagnosis Discharge Date 08/11/2021 Admitting Diagnosis Hematemesis, melena DS: Discharge Diagnosis Discharge Diagnosis (1) Acute upper GI bleed: Code(s): K92.2 - Gastrointestinal hemorrhage, unspecified Status: Acute Assessment and Plan: Associated with acute blood loss anemia Most likely related to steroid and NSAID complicated by esophageal varices secondary to liver cirrhosis Patient has history of liver cirrhosis and esophageal varices GI consult EGD 08/09/2021 IV Protonix IV octreotide drip Pain control Zofran IV Rocephin started as patient has ascites and GI bleed Monitor H&H transfuse if hemoglobin below 7 08/10/2021 interval history: patient had a EGD on 08/09 and showed erosive esophagitis and a small nonbleeding duodenal ulcer as well small esophageal varix, GI suspect secondary to NSAID is asked to avoid, patient with abdominal GI suspect from ascites patient is scheduled to paracentesis will follow-up, meds clinically stable will continue to monitor may discharge tomorrow. (2) Acute pancreatitis: Code(s): K85.90 - Acute pancreatitis without necrosis or infection, unspecified Status: Acute Assessment and Plan: Reviewed CT scan shows acute pancreatitis patient has elevated lipase Continue IV hydration Diet managed by GI IV and oral pain control Zofran for nausea (3) Ehpwu-1-lkfxsgwneet deficiency: Code(s): E88.01 - Oxfoy-9-erbhzdzloox deficiency Status: Inactive Assessment and Plan: Associated with liver cirrhosis GI follow-up (4) COVID-19: Code(s): U07.1 - COVID-19 Status: Acute Assessment and Plan: -leukocytosis likely from steroid taper, COVID-19 appears to be resolved, she completed steroid taper. She was diagnosed with COVID-19 2 weeks prior to admission -will continue p.r.n. breathing treatments Symbicort and albuterol DS: Summary Hospital Course Reason for hospitalization: Patient is a 51-year-old female with past medical history of alpha 1 antitrypsin deficiency cirrhosis with ascites presents to the ED with complaint of hematemesis. Of note patient was diagnosed with COVID-19 2 weeks ago managed outpatient with steroid taper and p.r.n. breathing treatments. She was alternating Tylenol and ibuprofen 800 mg t.i.d. for fever control. She was to complete steroids today. For her cirrhosis she follows Catrachita Magana VETERINARY VIRUS SERUM INSPECTOR at [facility] hepatology. She is not quite at transplant. She was planned to have paracentesis 08/12/2021. Of note patient had EGD last year which showed some varices that were not significant enough for intervention. She endorses nausea, melena, hematemesis. She still feels little shortness of breath after COVID 19. She denies fever, chills, chest pain. In the ED: Vitals stable, hemoglobin 11.6, leukocytosis WBC 18.2, INR 1.7, lipase 1241, CT abdomen pelvis shows signs of cirrhosis, varices, pancreatitis. Dr. Cheryl MEANS was consulted who will see patient for EGD. Patient admitted to IMU for further management Chief Complaint: Hematemesis, melena Hospital Course: Patient is seen by GI and clinically stable to discharge patient per GI, Patient is instructed to start with clear diet and advance as tolerated to low fat diet, keep you self hydrated but not too much, patient is instructed to follow up with her central office technician at [facility], patient to follow up with her primary care provider as soon as possible, patient is instructed if any symptoms wrosen to go to nearest ER. Status at Discharge Functional status at discharge: uses cane/walker Overall status at discharge: patient is back to baseline Time Spent with Patient Time attestation: Total time spent providing and/or coordinating discharge services: Patient was seen and examined at the time of the discharge Condition at discharge is stable Code status: Full code. Time spent preparing discharge summary, discharge medications, discussing
== END 2021-08-11 15:59 | disposition home or self-care (01) | DRG 377 ==
LOC: ANHED 09:36 → ANHIMU 09:40
PROVIDERS: Emergency Medicine; Internal Medicine; Internal Medicine Gastroenterology; Admitting Provider Student in an Organized Health Care Education/Training Program; Emergency Provider Emergency Medicine; Visit Provider Family Medicine
PROC: 0DJ08ZZ Inspection of Upper Intestinal Tract, Via Natural or Artificial Opening Endoscopic (ICD-10-PCS; CPT 43235; principal; 2021-08-09 14:15)
DX: K92.2 Gastrointestinal hemorrhage, unspecified (principal); K85.90 Acute pancreatitis without necrosis or infection, unspecified; R18.8 Other ascites; D62 Acute posthemorrhagic anemia; Z68.43 Body mass index [BMI] 50.0-59.9, adult; D68.8 Other specified coagulation defects; K76.6 Portal hypertension; K22.10 Ulcer of esophagus without bleeding; K74.60 Unspecified cirrhosis of liver; E88.01 Alpha-1-antitrypsin deficiency; E66.01 Morbid (severe) obesity due to excess calories; D72.829 Elevated white blood cell count, unspecified; I85.00 Esophageal varices without bleeding; K29.70 Gastritis, unspecified, without bleeding; K26.9 Duodenal ulcer, unspecified as acute or chronic, without hemorrhage or perforation; D69.59 Other secondary thrombocytopenia; Z86.16 Personal history of COVID-19; Z79.1 Long term (current) use of non-steroidal anti-inflammatories (NSAID); Z87.891 Personal history of nicotine dependence
CPT/HCPCS: 36415; 49083; 74177; 80048; 80053; 82140; 82607; 82746; 82948; 83036; 83690; 83735; 84478; 85014; 85018; 85025; 85027; 85610; 85730; 86850; 86900; 86901; 93005; 94640; 96361; 96365; 96366; 96367; 96368; 96375; 96376; 99285; A9270; C9113; G0378; J0696; J2001; J2354; J2405; J2704; J2765; J7030; J7060; J7120; Q9967